=== PATIENT | male | born 1990 | race African-American/Black ===

== ENCOUNTER 2018-12-19 13:52 | Emergency (ER) | payer OTHER ==
[~2018-12-19] VITALS: Ht 172.7 cm; Wt 102.1 kg
[2018-12-19 14:02] VITALS: BP 146/74
--- NOTE | 2018-12-19 16:26 | NUR ---
For Discharge- After Care Instructions given Kvng wrap and crutches by EMT [facility] ambulatory in Stable condition
--- NOTE | 2018-12-19 16:28 | NUR ---
Patient discharged to home in stable condition. Written and verbal after care instructions given. Crutches was dispensed and gait training provided to pt. Patient verbalizes understanding of instruction.
== END 2018-12-19 16:11 | disposition home or self-care (01) ==
LOC: ER 13:56
DX: S93.492A Sprain of other ligament of left ankle, initial encounter (principal); J45.909 Unspecified asthma, uncomplicated; F12.90 Cannabis use, unspecified, uncomplicated; Z60.2 Problems related to living alone; W18.39XA Other fall on same level, initial encounter; Y93.67 Activity, basketball; Y92.310 Basketball court as the place of occurrence of the external cause; Y99.8 Other external cause status
CPT/HCPCS: 73590-TC; 73610-TC

== ENCOUNTER 2019-06-07 22:25 | Emergency (ER) | payer OTHER ==
[~2019-06-07] VITALS: Ht 177.8 cm; Wt 95.3 kg
--- NOTE | 2019-06-07 22:51 | NUR ---
BIB SELF C/O FEVER, PRODUCTIVE COUGH AND CONGESTION X6 DAYS UNRELIEVED WITH TYLENOL & OTC COUGH SYRUP. CURRENTLY AFEBRILE . LAST TYLENOL WAS 500MG AT 1999. PMH OF ASTHMA.
--- NOTE | 2019-06-07 23:18 | NUR ---
CALLED RT FOR BREATHING TX
[2019-06-07] MEDS ORDERED: IPRATROPIUM NEB FS 0.5 MG/2.5 ML AMPUL.NEB NEB ONE (23:30)
[2019-06-07] MEDS ORDERED: ALBUTEROL FS 2.5 MG/3 ML VIAL.NEB NEB ONE (23:30)
[2019-06-07] MEDS ORDERED: ALBUTEROL FS 2.5 MG/3 ML VIAL.NEB ONE (23:44)
[2019-06-07] MEDS ORDERED: IPRATROPIUM NEB FS 0.5 MG/2.5 ML AMPUL.NEB ONE (23:44)
[2019-06-07] MEDS ORDERED: KETOROLAC TROMETHAMINE INJ 60 MG/2 ML VIAL IM ONE (23:52)
[2019-06-08] MEDS ORDERED: KETOROLAC TROMETHAMINE INJ 60 MG/2 ML VIAL IM ONE
[2019-06-08 00:17] VITALS: BP 127/75
--- NOTE | 2019-06-08 00:17 | NUR ---
Patient discharged to home in stable condition. Written and verbal after care instructions given. Patient verbalizes understanding of instruction. ambulatory with a steady gait noted. pt [id number] no acute distress noted, resp even and unlabored.
[2019-06-08] MEDS ORDERED: CEFTRIAXONE 1 G VIAL IM ONE (00:30)
== END 2019-06-08 00:18 | disposition home or self-care (01) ==
LOC: ER 22:28
DX: J20.9 Acute bronchitis, unspecified (principal); F17.200 Nicotine dependence, unspecified, uncomplicated; Z60.2 Problems related to living alone
CPT/HCPCS: 71045; 93005; 94640; 96372; 99283; J1885